=== PATIENT | female | born 1950 | race Caucasian/White ===

== ENCOUNTER 2016-08-13 14:00 | Outpatient (RCR) | payer MEDICARE, OTHER ==
[~2016-08-13 14:00] MED LIST: ASPIRIN E.C. 8181 MG PO; AZOR 10 MG-20 M1 TAB PO; BACTRIM 400 MG-1 TAB PO; CELEBREX50 MG PO
== END 2016-09-21 | disposition home or self-care (01) ==
LOC: WSPT
DX: Z47.89 Encounter for other orthopedic aftercare (principal); M25.861 Other specified joint disorders, right knee
CPT/HCPCS: G8978-GP; G8979-GP; G8980-GP; G8982-GP

== ENCOUNTER 2016-09-23 14:16 | Outpatient (RCR) | payer OTHER | END 2016-12-22 | LOC: WSOH | DX: Z77.21 Contact with and (suspected) exposure to potentially hazardous body fluids (principal); S61.032A Puncture wound without foreign body of left thumb without damage to nail, initial encounter; W26.8XXA Contact with other sharp object(s), not elsewhere classified, initial encounter; Y99.0 Civilian activity done for income or pay ==

== ENCOUNTER → 2016-10-08 | Outpatient (CLI) | payer MEDICARE, OTHER | LOC: MC.RAD 10-06 14:20 | DX: Z12.31 Encounter for screening mammogram for malignant neoplasm of breast (principal) ==

== ENCOUNTER → 2017-05-03 | Outpatient (CLI) | payer MEDICARE, OTHER ==
[~2017-05-03] VITALS: Ht 165.1 cm; Wt 65.3 kg
[~2017-05-03] MED LIST changes: +AMBIEN 5MG TABLE5 MG PO; +AZOR 10 MG-40 M1 TAB PO; +CALCIUM 600-D 61 TAB PO; +COMBIRESP IH; +FYAVOLV 1 MG-51 EACH PO; +MOBIC15 MG PO; +MULTI VITAMINS1 TAB PO; +PULMICORT180 MCG/Ac IH; +SINGULAIR 110 MG/TAB PO; +VITAMIN C500 MG PO; +XANAX 0.5MG0.5 MG PO; +ZOLOFT 100MG100 MG PO; +ZYRTEC 10MG10 MG PO
[2017-05-03 14:45] VITALS: BP 130/67; PULSE 71; TEMP 97.7
== END ==
LOC: EUO 13:00
DX: J82 Pulmonary eosinophilia, not elsewhere classified (principal); Z79.899 Other long term (current) drug therapy
CPT/HCPCS: J2182

== ENCOUNTER 2017-07-06 10:01 | Outpatient (CLI) | payer MEDICARE, OTHER ==
[~2017-07-06] VITALS: Ht 165.1 cm; Wt 64.5 kg
[2017-07-06 11:06] VITALS: BP 132/58; PULSE 67; TEMP 98
== END 2017-07-09 09:11 | disposition home or self-care (01) ==
LOC: EUO 10:01
DX: J82 Pulmonary eosinophilia, not elsewhere classified (principal)
CPT/HCPCS: J2182

== ENCOUNTER 2017-08-05 12:45 | Outpatient (CLI) | payer MEDICARE, OTHER ==
[~2017-08-05] VITALS: Ht 165.1 cm; Wt 64.4 kg
[2017-08-05 13:11] VITALS: BP 115/60; PULSE 83; TEMP 98
== END 2017-08-05 16:00 | disposition home or self-care (01) ==
LOC: EUO 12:45
DX: J82 Pulmonary eosinophilia, not elsewhere classified (principal)
CPT/HCPCS: J2182

== ENCOUNTER 2017-09-02 12:51 | Outpatient (CLI) | payer MEDICARE, OTHER ==
[2017-09-02 13:05] VITALS: BP 112/56; PULSE 92; TEMP 97.6
== END 2017-09-02 13:41 | disposition home or self-care (01) ==
LOC: EUO 12:51
DX: J82 Pulmonary eosinophilia, not elsewhere classified (principal); Z79.899 Other long term (current) drug therapy
CPT/HCPCS: J2182

== ENCOUNTER 2017-10-05 10:48 | Outpatient (CLI) | payer MEDICARE, OTHER ==
[~2017-10-05] VITALS: Ht 165.1 cm; Wt 63.2 kg
[2017-10-05 11:00] VITALS: BP 128/66; PULSE 71; TEMP 98.1
== END 2017-10-05 11:45 | disposition home or self-care (01) ==
LOC: EUO 10:48
DX: J82 Pulmonary eosinophilia, not elsewhere classified (principal); Z79.899 Other long term (current) drug therapy
CPT/HCPCS: J2182

== ENCOUNTER 2017-11-01 10:41 | Outpatient (CLI) | payer MEDICARE, OTHER ==
[~2017-11-01] VITALS: Ht 165.1 cm; Wt 63.9 kg
[2017-11-01 10:56] VITALS: BP 133/66; PULSE 68; TEMP 97.9
== END 2017-11-01 13:56 | disposition home or self-care (01) ==
LOC: EUO 10:41
DX: J82 Pulmonary eosinophilia, not elsewhere classified (principal); Z79.899 Other long term (current) drug therapy
CPT/HCPCS: J2182

== ENCOUNTER 2017-11-29 10:31 | Outpatient (CLI) | payer MEDICARE, OTHER ==
[~2017-11-29] VITALS: Ht 165.1 cm; Wt 61.5 kg
[2017-11-29 10:50] VITALS: BP 114/56; PULSE 69; TEMP 98.6
== END 2017-11-29 14:00 | disposition home or self-care (01) ==
LOC: EUO 10:31
DX: J82 Pulmonary eosinophilia, not elsewhere classified (principal)
CPT/HCPCS: J2182

== ENCOUNTER → 2017-12-20 | Outpatient (CLI) | payer MEDICARE, OTHER | LOC: MC.RAD 12-06 11:20 | DX: Z12.31 Encounter for screening mammogram for malignant neoplasm of breast (principal); N64.89 Other specified disorders of breast ==

== ENCOUNTER 2017-12-27 10:44 | Outpatient (CLI) | payer MEDICARE, OTHER ==
[~2017-12-27] VITALS: Ht 165.1 cm; Wt 61.9 kg
[2017-12-27 11:10] VITALS: BP 112/61; PULSE 65; TEMP 98.3
== END 2017-12-27 12:03 | disposition home or self-care (01) ==
LOC: EUO 10:44
DX: J82 Pulmonary eosinophilia, not elsewhere classified (principal)
CPT/HCPCS: J2182

== ENCOUNTER → 2017-12-28 | Outpatient (CLI) | payer MEDICARE, OTHER | LOC: MC.RAD 09:53 | DX: R92.2 Inconclusive mammogram (principal); N64.89 Other specified disorders of breast; J82 Pulmonary eosinophilia, not elsewhere classified ==

== ENCOUNTER 2018-01-28 15:55 | Emergency (ER) | payer MEDICARE, OTHER ==
[~2018-01-28] VITALS: Ht 165.1 cm; Wt 62.3 kg
[2018-01-28 15:59] VITALS: TEMP 98.2
[2018-01-28] MEDS ORDERED: PREDNISONE20 MG PO (17:16)
[2018-01-28] MEDS ORDERED: ZITHROMAX Z PA250 MG PO (17:16)
[2018-01-28 17:28] VITALS: BP 141/87; PULSE 82
== END 2018-01-28 17:28 | disposition home or self-care (01) ==
LOC: COL.ER 15:55
DX: J45.901 Unspecified asthma with (acute) exacerbation (principal); Z79.1 Long term (current) use of non-steroidal anti-inflammatories (NSAID)
CPT/HCPCS: J7512

== ENCOUNTER 2018-02-02 12:40 | Outpatient (CLI) | payer MEDICARE, OTHER ==
[~2018-02-02] VITALS: Ht 165.1 cm; Wt 61.0 kg
[~2018-02-02 12:40] MED LIST changes: +PREDNISONE20 MG PO; +ZITHROMAX Z PA250 MG PO
[2018-02-02 13:54] VITALS: BP 142/74; PULSE 77; TEMP 98.7
== END 2018-02-02 14:00 | disposition home or self-care (01) ==
LOC: EUO 12:40
DX: J82 Pulmonary eosinophilia, not elsewhere classified (principal)
CPT/HCPCS: J2182

== ENCOUNTER 2018-03-03 14:29 | Outpatient (CLI) | payer MEDICARE, OTHER ==
[~2018-03-03] VITALS: Ht 165.1 cm; Wt 62.0 kg
[2018-03-03] MEDS ORDERED: FLONASE NASAL S16 GM NS (15:35)
[2018-03-03] MEDS ORDERED: PRIL40 PO (15:35)
[2018-03-03 15:42] VITALS: BP 128/60; PULSE 73; TEMP 98.4
== END 2018-03-03 17:12 | disposition home or self-care (01) ==
LOC: EUO 14:29
DX: J82 Pulmonary eosinophilia, not elsewhere classified (principal); Z79.899 Other long term (current) drug therapy
CPT/HCPCS: J2182

== ENCOUNTER 2018-03-31 12:47 | Outpatient (CLI) | payer MEDICARE, OTHER ==
[~2018-03-31] VITALS: Ht 165.1 cm; Wt 69.1 kg
[~2018-03-31 12:47] MED LIST changes: +FLONASE NASAL S16 GM NS; +PRIL40 PO
[2018-03-31 13:30] VITALS: BP 97/45; PULSE 78
== END 2018-03-31 16:00 | disposition home or self-care (01) ==
LOC: EUO 12:47
DX: J82 Pulmonary eosinophilia, not elsewhere classified (principal)
CPT/HCPCS: J2182

== ENCOUNTER 2018-05-01 13:00 | Outpatient (CLI) | payer MEDICARE, OTHER ==
[~2018-05-01] VITALS: Ht 165.1 cm; Wt 62.3 kg
[2018-05-01 13:14] VITALS: BP 128/56; PULSE 78; TEMP 97.3
== END 2018-05-01 13:49 | disposition home or self-care (01) ==
LOC: EUO 13:00
DX: J82 Pulmonary eosinophilia, not elsewhere classified (principal)
CPT/HCPCS: J2182

== ENCOUNTER 2018-05-30 13:58 | Outpatient (CLI) | payer MEDICARE, OTHER ==
[~2018-05-30] VITALS: Ht 165.1 cm; Wt 81.5 kg
[2018-05-30 14:53] VITALS: BP 134/63; PULSE 72; TEMP 98.1
== END 2018-05-30 14:56 | disposition home or self-care (01) ==
LOC: EUO 13:58
DX: J82 Pulmonary eosinophilia, not elsewhere classified (principal); Z79.899 Other long term (current) drug therapy
CPT/HCPCS: J2182

== ENCOUNTER 2018-06-27 09:49 | Outpatient (CLI) | payer MEDICARE, OTHER ==
[~2018-06-27] VITALS: Ht 165.1 cm; Wt 62.3 kg
[2018-06-27 10:27] VITALS: BP 120/53; PULSE 67; TEMP 97.5
== END 2018-06-27 10:28 | disposition home or self-care (01) ==
LOC: EUO 09:49
DX: J82 Pulmonary eosinophilia, not elsewhere classified (principal); Z79.899 Other long term (current) drug therapy
CPT/HCPCS: J2182

== ENCOUNTER 2018-07-28 12:54 | Outpatient (CLI) | payer MEDICARE, OTHER ==
[~2018-07-28] VITALS: Ht 165.1 cm; Wt 62.0 kg
[2018-07-28 13:36] VITALS: BP 99/47; PULSE 79; TEMP 97.5
--- NOTE | 2018-07-28 13:46 | NUR ---
Pt paras William well. Pt discharged per ambulation.
== END 2018-07-28 13:47 | disposition home or self-care (01) ==
LOC: EUO 12:54
DX: J82 Pulmonary eosinophilia, not elsewhere classified (principal); Z79.899 Other long term (current) drug therapy
CPT/HCPCS: J2182

== ENCOUNTER 2018-08-28 12:43 | Outpatient (CLI) | payer MEDICARE, OTHER ==
[~2018-08-28] VITALS: Ht 165.1 cm; Wt 63.7 kg
[2018-08-28 13:41] VITALS: BP 110/47; PULSE 81; TEMP 97.3
== END 2018-08-28 13:41 | disposition home or self-care (01) ==
LOC: EUO 12:43
DX: J82 Pulmonary eosinophilia, not elsewhere classified (principal); Z79.899 Other long term (current) drug therapy
CPT/HCPCS: J2182

== ENCOUNTER 2018-09-25 10:14 | Outpatient (CLI) | payer MEDICARE, OTHER ==
[~2018-09-25] VITALS: Ht 165.1 cm; Wt 65.0 kg
[2018-09-25 10:33] VITALS: BP 121/61; PULSE 72; TEMP 98.3
== END 2018-09-25 11:39 | disposition home or self-care (01) ==
LOC: EUO 10:14
DX: J82 Pulmonary eosinophilia, not elsewhere classified (principal); Z79.899 Other long term (current) drug therapy
CPT/HCPCS: J2182

== ENCOUNTER 2018-10-23 12:44 | Outpatient (CLI) | payer MEDICARE, OTHER ==
[~2018-10-23] VITALS: Ht 165.1 cm; Wt 62.7 kg
[2018-10-23 12:57] VITALS: BP 101/57; PULSE 86; TEMP 97.7
== END 2018-10-23 13:30 | disposition home or self-care (01) ==
LOC: EUO 12:44
DX: J82 Pulmonary eosinophilia, not elsewhere classified (principal); Z79.899 Other long term (current) drug therapy
CPT/HCPCS: J2182

== ENCOUNTER 2018-11-20 13:59 | Outpatient (CLI) | payer MEDICARE, OTHER ==
[~2018-11-20] VITALS: Ht 165.1 cm; Wt 63.0 kg
[2018-11-20 14:15] VITALS: BP 117/59; PULSE 73; TEMP 98.4
--- NOTE | 2018-11-20 14:32 | NUR ---
Pt paras William well. Pt discharged per ambulation.
== END 2018-11-20 14:33 | disposition home or self-care (01) ==
LOC: EUO 13:59
DX: J82 Pulmonary eosinophilia, not elsewhere classified (principal); Z79.899 Other long term (current) drug therapy
CPT/HCPCS: J2182

== ENCOUNTER → 2018-12-21 | Outpatient (CLI) | payer MEDICARE, OTHER | LOC: MC.RAD 16:36 | DX: Z12.31 Encounter for screening mammogram for malignant neoplasm of breast (principal) | CPT/HCPCS: G0279 ==

== ENCOUNTER 2018-12-25 14:49 | Outpatient (CLI) | payer MEDICARE, OTHER ==
[~2018-12-25] VITALS: Ht 165.1 cm; Wt 63.1 kg
[2018-12-25 15:16] VITALS: BP 111/52; PULSE 65; TEMP 98.4
== END 2018-12-25 17:00 | disposition home or self-care (01) ==
LOC: EUO 14:49
DX: J82 Pulmonary eosinophilia, not elsewhere classified (principal); Z79.899 Other long term (current) drug therapy
CPT/HCPCS: J2182

== ENCOUNTER 2019-01-22 14:52 | Outpatient (CLI) | payer MEDICARE, OTHER ==
[~2019-01-22] VITALS: Ht 165.1 cm; Wt 61.5 kg
[2019-01-22 15:17] VITALS: BP 119/58; PULSE 69; TEMP 98.1
== END 2019-01-22 15:57 | disposition home or self-care (01) ==
LOC: EUO 14:52
DX: J82 Pulmonary eosinophilia, not elsewhere classified (principal); Z79.899 Other long term (current) drug therapy
CPT/HCPCS: J2182

== ENCOUNTER 2019-02-19 13:59 | Outpatient (CLI) | payer MEDICARE, OTHER ==
[~2019-02-19] VITALS: Ht 165.1 cm; Wt 61.8 kg
[2019-02-19 14:30] VITALS: BP 129/63; PULSE 72; TEMP 98.4
== END 2019-02-19 15:23 | disposition home or self-care (01) ==
LOC: EUO 13:59
DX: J82 Pulmonary eosinophilia, not elsewhere classified (principal); Z79.899 Other long term (current) drug therapy
CPT/HCPCS: J2182

== ENCOUNTER 2019-03-20 13:14 | Outpatient (CLI) | payer MEDICARE, OTHER ==
[~2019-03-20] VITALS: Ht 165.1 cm; Wt 61.0 kg
[2019-03-20 13:28] VITALS: BP 125/62; PULSE 80; TEMP 97.4
--- NOTE | 2019-03-20 13:44 | NUR ---
Pt paras ibrahim. Pt discharged per ambulation. Order will prior to next appt. Dr. Ferrell's office notified of new order needed prior to 04/17/19 appt.
[2019-03-20] MEDS ORDERED: NUCALA100 MG/1 M SQ (15:41)
== END 2019-03-20 13:46 | disposition home or self-care (01) ==
LOC: EUO 13:14
DX: J82 Pulmonary eosinophilia, not elsewhere classified (principal); Z79.899 Other long term (current) drug therapy
CPT/HCPCS: J2182

== ENCOUNTER 2019-04-18 15:06 | Outpatient (CLI) | payer MEDICARE, OTHER ==
[~2019-04-18] VITALS: Ht 165.1 cm; Wt 60.4 kg
[~2019-04-18 15:06] MED LIST changes: +NUCALA100 MG/1 M SQ
[2019-04-18 15:16] VITALS: BP 99/60; PULSE 93; TEMP 98.1
--- NOTE | 2019-04-18 16:36 | NUR ---
Pt paras William well. Pt discharged per ambulation.
== END 2019-04-18 16:37 | disposition home or self-care (01) ==
LOC: EUO 15:06
DX: Z79.899 Other long term (current) drug therapy (principal)
CPT/HCPCS: J2182

== ENCOUNTER 2019-05-16 16:02 | Outpatient (CLI) | payer MEDICARE, OTHER ==
[~2019-05-16] VITALS: Ht 165.1 cm; Wt 61.6 kg
[2019-05-16 16:10] VITALS: BP 116/57; PULSE 73; TEMP 98.1
== END 2019-05-16 16:36 | disposition home or self-care (01) ==
LOC: EUO 16:02
DX: Z79.899 Other long term (current) drug therapy (principal)
CPT/HCPCS: J2182

== ENCOUNTER 2019-06-13 15:40 | Outpatient (CLI) | payer MEDICARE, OTHER ==
[~2019-06-13] VITALS: Ht 165.1 cm; Wt 60.0 kg
[2019-06-13 15:50] VITALS: BP 114/59; PULSE 70; TEMP 98
[2019-06-13] MEDS ORDERED: LUNESTA2 MG PO (15:50)
--- NOTE | 2019-06-13 16:30 | NUR ---
Pt paras William well. Pt discharged per ambulation.
== END 2019-06-13 16:34 | disposition home or self-care (01) ==
LOC: EUO 15:40
DX: Z79.899 Other long term (current) drug therapy (principal)
CPT/HCPCS: J2182

== ENCOUNTER 2019-07-11 14:28 | Outpatient (CLI) | payer MEDICARE, OTHER ==
[~2019-07-11] VITALS: Ht 165.1 cm; Wt 60.4 kg
[~2019-07-11 14:28] MED LIST changes: +LUNESTA2 MG PO
[2019-07-11 15:03] VITALS: BP 111/56; PULSE 71; TEMP 98.7
== END 2019-07-11 15:21 | disposition home or self-care (01) ==
LOC: EUO 14:28
DX: Z79.899 Other long term (current) drug therapy (principal)
CPT/HCPCS: J2182

== ENCOUNTER 2019-08-08 14:20 | Outpatient (CLI) | payer MEDICARE, OTHER ==
[~2019-08-08] VITALS: Ht 165.1 cm; Wt 61.5 kg
[2019-08-08 14:41] VITALS: BP 120/69; PULSE 96; TEMP 98.1
== END 2019-08-08 15:35 | disposition home or self-care (01) ==
LOC: EUO 14:20
DX: Z79.899 Other long term (current) drug therapy (principal)
CPT/HCPCS: J2182

== ENCOUNTER 2019-09-05 14:02 | Outpatient (CLI) | payer MEDICARE, OTHER ==
[~2019-09-05] VITALS: Ht 165.1 cm; Wt 62.0 kg
[2019-09-05 14:20] VITALS: BP 112/61; PULSE 80; TEMP 98.1
== END 2019-09-05 15:00 | disposition home or self-care (01) ==
LOC: EUO 14:02
DX: Z79.899 Other long term (current) drug therapy (principal)
CPT/HCPCS: J2182

== ENCOUNTER 2019-10-03 13:56 | Outpatient (CLI) | payer MEDICARE, OTHER ==
[~2019-10-03] VITALS: Ht 165.1 cm; Wt 60.0 kg
[2019-10-03 14:30] VITALS: BP 124/55; PULSE 69; TEMP 98.2
== END 2019-10-03 15:00 | disposition home or self-care (01) ==
LOC: EUO 13:56
DX: Z79.899 Other long term (current) drug therapy (principal)
CPT/HCPCS: J2182

== ENCOUNTER 2019-11-28 13:58 | Outpatient (CLI) | payer MEDICARE, OTHER ==
[~2019-11-28] VITALS: Ht 165.1 cm; Wt 62.2 kg
[2019-11-28 14:16] VITALS: BP 122/66; PULSE 80; TEMP 97.8
== END 2019-11-28 16:19 | disposition home or self-care (01) ==
LOC: EUO 13:58
DX: Z79.899 Other long term (current) drug therapy (principal)
CPT/HCPCS: J2182

== ENCOUNTER 2019-12-25 13:56 | Outpatient (CLI) | payer MEDICARE, OTHER ==
[~2019-12-25] VITALS: Ht 165.1 cm; Wt 61.9 kg
[2019-12-25] MEDS ORDERED: ASPIRIN E.C. 8181 MG PO (14:26)
[2019-12-25 14:29] VITALS: BP 118/74; PULSE 77; TEMP 99.4
== END 2019-12-25 15:44 | disposition home or self-care (01) ==
LOC: EUO 13:56
DX: Z79.899 Other long term (current) drug therapy (principal)
CPT/HCPCS: J2182

== ENCOUNTER 2020-01-22 13:40 | Outpatient (CLI) | payer MEDICARE, OTHER ==
[~2020-01-22] VITALS: Ht 165.1 cm; Wt 60.9 kg
[2020-01-22 14:18] VITALS: BP 127/53; PULSE 71; TEMP 99
== END 2020-01-22 14:18 | disposition home or self-care (01) ==
LOC: EUO 13:40
DX: Z79.899 Other long term (current) drug therapy (principal)
CPT/HCPCS: J2182

== ENCOUNTER 2020-02-19 13:56 | Outpatient (CLI) | payer MEDICARE, OTHER ==
[~2020-02-19] VITALS: Ht 165.1 cm; Wt 60.4 kg
[2020-02-19 14:46] VITALS: BP 106/65; PULSE 74; TEMP 98.6
== END 2020-02-19 14:52 | disposition home or self-care (01) ==
LOC: EUO 13:56
DX: Z79.899 Other long term (current) drug therapy (principal)
CPT/HCPCS: J2182

== ENCOUNTER → 2020-03-18 | Outpatient (CLI) | payer MEDICARE, OTHER ==
[~2020-03-18] VITALS: Ht 165.1 cm; Wt 60.2 kg
[2020-03-18 14:23] VITALS: BP 122/75; PULSE 71; TEMP 97.9
== END ==
LOC: EUO 13:56
DX: Z79.899 Other long term (current) drug therapy (principal)
CPT/HCPCS: J2182

== ENCOUNTER 2020-04-15 15:49 | Outpatient (CLI) | payer MEDICARE, OTHER ==
[~2020-04-15] VITALS: Ht 165.1 cm; Wt 61.2 kg
[2020-04-15 16:06] VITALS: BP 122/60; PULSE 79; TEMP 97.6
== END 2020-04-15 17:49 | disposition home or self-care (01) ==
LOC: EUO 15:49
DX: Z79.899 Other long term (current) drug therapy (principal)
CPT/HCPCS: J2182

== ENCOUNTER 2020-05-14 12:50 | Outpatient (CLI) | payer MEDICARE, OTHER ==
[~2020-05-14] VITALS: Ht 165.1 cm; Wt 62.0 kg
[2020-05-14 13:45] VITALS: BP 121/70; PULSE 73; TEMP 97.7
== END 2020-05-14 13:55 | disposition home or self-care (01) ==
LOC: EUO 12:50
DX: D72.10 Eosinophilia, unspecified (principal)
CPT/HCPCS: J2182

== ENCOUNTER → 2020-06-11 | Outpatient (CLI) | payer MEDICARE, OTHER ==
[~2020-06-11] VITALS: Ht 165.1 cm; Wt 61.6 kg
[2020-06-11 10:52] VITALS: BP 111/60; BP 123/69; PULSE 70; PULSE 79; TEMP 98.5; TEMP 99.1
== END ==
LOC: EUO 09:55
DX: Z79.899 Other long term (current) drug therapy (principal)
CPT/HCPCS: J2182

== ENCOUNTER 2020-07-07 14:00 | Outpatient (RCR) | payer MEDICARE, OTHER ==
[2020-07-07] MEDS ORDERED: PHARMASSURE ZIN50 MG PO (14:46)
== END 2020-07-28 | disposition home or self-care (01) ==
LOC: WSPT
DX: M89.49 Other hypertrophic osteoarthropathy, multiple sites (principal)

== ENCOUNTER 2020-07-07 14:05 | Outpatient (CLI) | payer MEDICARE, OTHER ==
[~2020-07-07] VITALS: Ht 165.1 cm; Wt 62.0 kg
[2020-07-07] MEDS ORDERED: PHARMASSURE ZIN50 MG PO (14:46)
[2020-07-07 14:47] VITALS: BP 121/72; PULSE 78; TEMP 98.5
== END 2020-07-07 15:03 | disposition home or self-care (01) ==
LOC: EUO 14:05
DX: Z79.899 Other long term (current) drug therapy (principal)
CPT/HCPCS: J2182

== ENCOUNTER 2020-08-05 14:51 | Emergency (ER) | payer MEDICARE, OTHER ==
[~2020-08-05] VITALS: Ht 165.1 cm; Wt 62.3 kg
[~2020-08-05 14:51] MED LIST changes: +PHARMASSURE ZIN50 MG PO
[2020-08-05 14:55] VITALS: TEMP 98.4
[2020-08-05] MEDS ORDERED: PERCOCET 325 MG1 TA2 PO (18:15)
[2020-08-05 18:47] VITALS: BP 122/70; PULSE 68
== END 2020-08-05 18:47 | disposition home or self-care (01) ==
LOC: COL.ER 14:51
DX: S53.104A Unspecified dislocation of right ulnohumeral joint, initial encounter (principal); Z88.0 Allergy status to penicillin; Z88.2 Allergy status to sulfonamides; Z88.1 Allergy status to other antibiotic agents; Z87.891 Personal history of nicotine dependence; Z79.82 Long term (current) use of aspirin; W19.XXXA Unspecified fall, initial encounter
CPT/HCPCS: J2405; J2704; J3010; J7030

== ENCOUNTER 2020-08-11 15:38 | Outpatient (CLI) | payer MEDICARE, OTHER ==
[~2020-08-11] VITALS: Ht 165.1 cm; Wt 62.3 kg
[~2020-08-11 15:38] MED LIST changes: +PERCOCET 325 MG1 TA2 PO
[2020-08-11 16:03] VITALS: BP 130/79; PULSE 72; TEMP 98.3
== END 2020-08-12 13:58 | disposition home or self-care (01) ==
LOC: EUO 15:38
DX: M81.0 Age-related osteoporosis without current pathological fracture (principal)
CPT/HCPCS: J2182

== ENCOUNTER 2020-09-08 13:37 | Outpatient (CLI) | payer MEDICARE, OTHER ==
[~2020-09-08] VITALS: Ht 165.1 cm; Wt 68.2 kg
[2020-09-08 14:27] VITALS: BP 102/63; PULSE 75; TEMP 98.7
== END 2020-09-08 14:30 | disposition home or self-care (01) ==
LOC: EUO 13:37
DX: Z79.899 Other long term (current) drug therapy (principal)
CPT/HCPCS: J2182

== ENCOUNTER 2020-10-06 09:41 | Outpatient (CLI) | payer MEDICARE, OTHER ==
[~2020-10-06] VITALS: Ht 165.1 cm; Wt 62.6 kg
[~2020-10-06 09:41] MED LIST changes: +DUO-KAPS1 CAP PO; -MULTI VITAMINS1 TAB PO
[2020-10-06 10:04] VITALS: BP 110/71; PULSE 76; TEMP 98.5
== END 2020-10-06 10:20 | disposition home or self-care (01) ==
LOC: EUO
DX: Z79.899 Other long term (current) drug therapy (principal)
CPT/HCPCS: J2182

== ENCOUNTER 2020-10-06 14:00 | Outpatient (RCR) | payer MEDICARE, OTHER | END 2020-11-16 | disposition still patient (30) | LOC: WSOT | DX: M25.521 Pain in right elbow (principal) ==

== ENCOUNTER 2020-10-28 13:48 | Outpatient (CLI) | payer MEDICARE, OTHER ==
[~2020-10-28] VITALS: Ht 165.1 cm; Wt 62.4 kg
[2020-10-28 14:11] VITALS: BP 111/68; PULSE 84; TEMP 97.4
== END 2020-10-28 17:11 | disposition home or self-care (01) ==
LOC: EUO 13:48
DX: Z79.899 Other long term (current) drug therapy (principal)
CPT/HCPCS: J2182

== ENCOUNTER → 2020-11-25 10:01 | Outpatient (CLI) | payer MEDICARE, OTHER ==
[~2020-11-25] VITALS: Ht 165.1 cm; Wt 61.1 kg
[~2020-11-25 10:01] MED LIST changes: +CELEBREX 1100 MG/CAP PO; +LIPITOR 10MG10 MG PO
[2020-11-25 10:28] VITALS: BP 146/69; PULSE 70; TEMP 98.8
== END ==
LOC: EUO 10:01
DX: Z79.899 Other long term (current) drug therapy (principal)
CPT/HCPCS: J0517; J2182

== ENCOUNTER → 2020-11-27 | Outpatient (CLI) | payer MEDICARE, OTHER | LOC: MC.RAD 10:19 | DX: Z12.31 Encounter for screening mammogram for malignant neoplasm of breast (principal) ==

== ENCOUNTER 2020-12-25 12:41 | Outpatient (CLI) | payer MEDICARE, OTHER ==
[~2020-12-25] VITALS: Ht 165.1 cm; Wt 60.8 kg
[~2020-12-25 12:41] MED LIST changes: -CELEBREX 1100 MG/CAP PO; -LIPITOR 10MG10 MG PO
[2020-12-25 13:26] VITALS: BP 113/72; PULSE 74; TEMP 97.7
== END 2020-12-30 15:57 | disposition home or self-care (01) ==
LOC: EUO 12:41
DX: Z79.899 Other long term (current) drug therapy (principal)
CPT/HCPCS: J2182

== ENCOUNTER → 2021-01-07 | Outpatient (CLI) | payer MEDICARE, OTHER ==
[~2021-01-07] MED LIST changes: +CELEBREX 1100 MG/CAP PO; +LIPITOR 10MG10 MG PO
== END ==
LOC: MHCPAIN 10:47
DX: M54.2 Cervicalgia (principal); R51.9 Headache, unspecified; M47.812 Spondylosis without myelopathy or radiculopathy, cervical region; G89.29 Other chronic pain
CPT/HCPCS: G0463

== ENCOUNTER 2021-01-22 15:21 | Outpatient (CLI) | payer MEDICARE, OTHER ==
[~2021-01-22] VITALS: Ht 165.1 cm; Wt 60.8 kg
[~2021-01-22 15:21] MED LIST changes: -CELEBREX 1100 MG/CAP PO; -LIPITOR 10MG10 MG PO
[2021-01-22 16:15] VITALS: BP 115/66; PULSE 71; TEMP 98
== END 2021-01-22 16:00 | disposition home or self-care (01) ==
LOC: EUO 15:21
DX: Z79.899 Other long term (current) drug therapy (principal)
CPT/HCPCS: J2182

== ENCOUNTER 2021-02-23 13:28 | Outpatient (CLI) | payer MEDICARE, OTHER ==
[~2021-02-23] VITALS: Ht 165.1 cm; Wt 60.0 kg
[2021-02-23 13:55] VITALS: BP 106/65; PULSE 70; TEMP 97.5
== END 2021-02-23 14:26 | disposition home or self-care (01) ==
LOC: EUO 13:28
DX: Z79.899 Other long term (current) drug therapy (principal)
CPT/HCPCS: J2182

== ENCOUNTER 2021-03-23 13:24 | Outpatient (CLI) | payer MEDICARE, OTHER ==
[~2021-03-23] VITALS: Ht 165.1 cm; Wt 64.5 kg
[2021-03-23 13:37] VITALS: BP 113/62; PULSE 73; TEMP 97.4
== END 2021-03-23 16:05 | disposition home or self-care (01) ==
LOC: EUO 13:24
DX: Z79.899 Other long term (current) drug therapy (principal)
CPT/HCPCS: J2182

== ENCOUNTER 2021-04-20 13:10 | Outpatient (CLI) | payer MEDICARE, OTHER ==
[~2021-04-20] VITALS: Ht 165.1 cm; Wt 59.6 kg
[2021-04-20 13:45] VITALS: BP 119/63; PULSE 84; TEMP 98.2
[2021-04-20] MEDS ORDERED: CELEBREX 1100 MG/CAP PO (13:48)
== END 2021-04-20 14:47 | disposition home or self-care (01) ==
LOC: EUO 13:10
DX: Z79.899 Other long term (current) drug therapy (principal)
CPT/HCPCS: J2182

== ENCOUNTER → 2021-04-24 | Outpatient (CLI) | payer MEDICARE, OTHER ==
[~2021-04-24] MED LIST changes: +CELEBREX 1100 MG/CAP PO; +LIPITOR 10MG10 MG PO
== END ==
LOC: MC.RAD 06:55
DX: N63.11 Unspecified lump in the right breast, upper outer quadrant (principal)

== ENCOUNTER 2021-05-18 14:42 | Outpatient (CLI) | payer MEDICARE, OTHER ==
[~2021-05-18] VITALS: Ht 165.1 cm; Wt 59.6 kg
[~2021-05-18 14:42] MED LIST changes: -LIPITOR 10MG10 MG PO
[2021-05-18] MEDS ORDERED: LIPITOR 10MG10 MG PO (14:57)
[2021-05-18 14:58] VITALS: BP 114/64; PULSE 81; TEMP 97.6
== END 2021-05-18 15:43 ==
LOC: EUO 14:42
DX: Z79.899 Other long term (current) drug therapy (principal)
CPT/HCPCS: J2182

== ENCOUNTER 2021-06-15 13:18 | Outpatient (CLI) | payer MEDICARE, OTHER ==
[~2021-06-15] VITALS: Ht 165.1 cm; Wt 56.4 kg
[~2021-06-15 13:18] MED LIST changes: +LIPITOR 10MG10 MG PO
[2021-06-15 13:36] VITALS: BP 109/74; PULSE 73; TEMP 97.8
== END 2021-06-15 14:06 | disposition home or self-care (01) ==
LOC: EUO 13:18
DX: Z79.899 Other long term (current) drug therapy (principal)
CPT/HCPCS: J2182

== ENCOUNTER 2021-07-13 12:45 | Outpatient (CLI) | payer MEDICARE, OTHER ==
[~2021-07-13] VITALS: Ht 165.1 cm; Wt 60.2 kg
[2021-07-13 13:09] VITALS: BP 128/64; PULSE 72; TEMP 97.5
== END 2021-07-13 17:13 | disposition home or self-care (01) ==
LOC: EUO 12:45
DX: Z79.899 Other long term (current) drug therapy (principal)
CPT/HCPCS: J2182

== ENCOUNTER 2021-08-10 14:03 | Outpatient (CLI) | payer MEDICARE, OTHER ==
[~2021-08-10] VITALS: Ht 165.1 cm; Wt 60.2 kg
[2021-08-10 14:30] VITALS: BP 138/62; PULSE 62; TEMP 98
== END 2021-08-10 15:00 | disposition home or self-care (01) ==
LOC: EUO 14:03
DX: Z79.899 Other long term (current) drug therapy (principal)
CPT/HCPCS: J2182

== ENCOUNTER 2021-09-07 12:37 | Outpatient (CLI) | payer MEDICARE, OTHER ==
[~2021-09-07] VITALS: Ht 165.1 cm; Wt 62.0 kg
[2021-09-07 12:59] VITALS: BP 119/72; PULSE 77; TEMP 98.1
== END 2021-09-07 13:18 | disposition home or self-care (01) ==
LOC: EUO 12:37
DX: Z79.899 Other long term (current) drug therapy (principal)
CPT/HCPCS: J2182

== ENCOUNTER → 2021-10-12 | Outpatient (CLI) | payer MEDICARE, OTHER ==
[~2021-10-12] VITALS: Ht 165.1 cm; Wt 73.0 kg
[~2021-10-12] MED LIST changes: +ULTRAM 50MG TAB50 MG PO; +ZOHYDRO ER10 MG PO
[2021-10-12 13:27] VITALS: BP 114/76; PULSE 110; TEMP 97.7
== END ==
LOC: EUO 10-05 13:00
DX: Z51.81 Encounter for therapeutic drug level monitoring (principal)
CPT/HCPCS: J2182

== ENCOUNTER 2021-11-09 12:52 | Outpatient (CLI) | payer MEDICARE, OTHER ==
[~2021-11-09] VITALS: Ht 165.1 cm; Wt 60.1 kg
[2021-11-09 13:24] VITALS: BP 100/67; PULSE 98; TEMP 98.7
[2021-11-09] MEDS ORDERED: CELEBREX 200MG200 MG PO (13:24)
== END 2021-11-09 15:04 | disposition home or self-care (01) ==
LOC: EUO 12:52
DX: Z51.81 Encounter for therapeutic drug level monitoring (principal)
CPT/HCPCS: J2182

== ENCOUNTER 2021-12-07 12:42 | Outpatient (CLI) | payer MEDICARE, OTHER ==
[~2021-12-07] VITALS: Ht 165.1 cm; Wt 59.6 kg
[~2021-12-07 12:42] MED LIST changes: +CELEBREX 200MG200 MG PO
[2021-12-07 13:26] VITALS: BP 95/60; PULSE 71; TEMP 98.3
== END 2021-12-07 13:27 ==
LOC: EUO 12:42
DX: Z79.899 Other long term (current) drug therapy (principal)
CPT/HCPCS: J2182

== ENCOUNTER → 2021-12-17 | Outpatient (CLI) | payer MEDICARE, OTHER | LOC: MC.RAD 09:08 | DX: Z12.31 Encounter for screening mammogram for malignant neoplasm of breast (principal) ==

== ENCOUNTER 2022-01-04 12:45 | Outpatient (CLI) | payer MEDICARE, OTHER ==
[~2022-01-04] VITALS: Ht 165.1 cm; Wt 59.3 kg
[2022-01-04 13:15] VITALS: BP 98/60; PULSE 82; TEMP 98.7
== END 2022-01-04 13:39 ==
LOC: EUO 12:45
DX: Z51.81 Encounter for therapeutic drug level monitoring (principal)
CPT/HCPCS: J2182

== ENCOUNTER 2022-03-01 12:38 | Outpatient (CLI) | payer MEDICARE, OTHER ==
[~2022-03-01] VITALS: Ht 165.1 cm; Wt 60.1 kg
[~2022-03-01 12:38] MED LIST changes: +CREON 120000 U-1 ECC PO; +CYMBALTA 30MG30 MG PO; +MIMVEY 1 MG-0.51 TAB PO
[2022-03-01] MEDS ORDERED: CYMBALTA 30MG30 MG PO (13:20)
[2022-03-01 13:24] VITALS: BP 103/66; PULSE 72; TEMP 97.4
== END 2022-03-01 13:45 | disposition home or self-care (01) ==
LOC: EUO 12:38
DX: Z51.81 Encounter for therapeutic drug level monitoring (principal)
CPT/HCPCS: J2182

== ENCOUNTER 2022-03-30 10:42 | Outpatient (CLI) | payer MEDICARE, OTHER ==
[~2022-03-30] VITALS: Ht 165.1 cm; Wt 60.6 kg
[2022-03-30 11:23] VITALS: BP 110/68; PULSE 84; TEMP 98.4
== END 2022-03-30 11:32 ==
LOC: EUO 10:42
DX: Z51.81 Encounter for therapeutic drug level monitoring (principal)
CPT/HCPCS: J2182

== ENCOUNTER 2022-05-25 12:37 | Outpatient (CLI) | payer MEDICARE, OTHER ==
[~2022-05-25] VITALS: Ht 165.1 cm; Wt 62.2 kg
[~2022-05-25 12:37] MED LIST changes: +ACTIVELLA TABLE1 TAB PO; +FLOVENT DI100 MCG/Ac IH
[2022-05-25 13:17] VITALS: BP 128/62; PULSE 71; TEMP 97.9
== END 2022-05-25 13:26 ==
LOC: EUO 12:37
DX: Z51.81 Encounter for therapeutic drug level monitoring (principal); Z79.899 Other long term (current) drug therapy
CPT/HCPCS: J2182

== ENCOUNTER → 2022-08-24 | Outpatient (RCR) | payer MEDICARE, OTHER | END | disposition home or self-care (01) | LOC: PT.GENESIS | DX: M25.561 Pain in right knee (principal); M25.562 Pain in left knee; M54.2 Cervicalgia; G89.29 Other chronic pain ==

== ENCOUNTER 2022-08-27 10:45 | Outpatient (RCR) | payer MEDICARE, OTHER | END 2022-09-14 14:14 | disposition home or self-care (01) | LOC: PT.GENESIS 10:45 | DX: M25.561 Pain in right knee (principal); M25.562 Pain in left knee; G89.29 Other chronic pain ==

== ENCOUNTER 2022-09-02 07:39 | Outpatient (CLI) | payer MEDICARE, OTHER ==
[~2022-09-02] VITALS: Ht 165.1 cm; Wt 64.5 kg
[2022-09-02 08:02] VITALS: BP 134/77; PULSE 78; TEMP 98.4
--- NOTE | 2022-09-02 08:20 | NUR ---
Pt tolerated injections without issue. She exits dept with steady gait.
== END 2022-09-02 08:20 | disposition home or self-care (01) ==
LOC: EUO 07:39
DX: Z79.899 Other long term (current) drug therapy (principal)
CPT/HCPCS: J2182

== ENCOUNTER 2023-03-25 10:48 | Outpatient (CLI) | payer MEDICARE, OTHER ==
[~2023-03-25] VITALS: Ht 165.1 cm; Wt 63.9 kg
[2023-03-25 11:23] VITALS: BP 112/75; PULSE 85; TEMP 98.4
== END 2023-03-25 11:30 | disposition home or self-care (01) ==
LOC: EUO 10:48
DX: Z51.81 Encounter for therapeutic drug level monitoring (principal)
CPT/HCPCS: J2182

== ENCOUNTER 2023-07-19 12:40 | Outpatient (CLI) | payer MEDICARE, OTHER ==
[~2023-07-19] VITALS: Ht 165.1 cm; Wt 63.5 kg
[~2023-07-19 12:40] MED LIST changes: +ADVIL200 MG PO
[2023-07-19 12:52] VITALS: BP 106/67; PULSE 95; TEMP 97.6
== END 2023-07-19 13:12 | disposition home or self-care (01) ==
LOC: EUO 12:40
DX: Z51.81 Encounter for therapeutic drug level monitoring (principal)
CPT/HCPCS: J2182

== ENCOUNTER 2023-08-23 13:45 | Outpatient (RCR) | payer MEDICARE, OTHER | END 2023-08-24 | disposition home or self-care (01) | LOC: PT.GENESIS | DX: M17.0 Bilateral primary osteoarthritis of knee (principal); Z96.652 Presence of left artificial knee joint ==

== ENCOUNTER 2023-09-14 11:01 | Outpatient (CLI) | payer MEDICARE, OTHER ==
[~2023-09-14] VITALS: Ht 165.1 cm; Wt 63.1 kg
[2023-09-14] MEDS ORDERED: Mepolizumab 100 MG VIAL SQ ONE (11:15)
[2023-09-14 11:31] VITALS: BP 107/73; PULSE 96; TEMP 98.5
[2023-09-14] MEDS ORDERED: PROAIR HFA0.09 MG/AC IH (11:36)
--- NOTE | 2023-09-14 12:02 | NUR ---
Pt tolerated medication without issue. She exits dept with steady gait. Free of complaints at discharge.
== END 2023-09-14 12:03 | disposition home or self-care (01) ==
LOC: EUO 11:01
DX: J45.909 Unspecified asthma, uncomplicated (principal)
CPT/HCPCS: J2182

== ENCOUNTER 2023-09-21 14:30 | Outpatient (RCR) | payer MEDICARE, OTHER ==
[~2023-09-21 14:30] MED LIST changes: +PROAIR HFA0.09 MG/AC IH
== END 2023-09-22 | disposition home or self-care (01) ==
LOC: PT.GENESIS
DX: Z96.652 Presence of left artificial knee joint (principal)
CPT/HCPCS: G0283-GP

== ENCOUNTER 2023-10-12 10:02 | Outpatient (CLI) | payer MEDICARE, OTHER ==
[2023-10-12] MEDS ORDERED: Mepolizumab 100 MG VIAL SQ ONE (10:15)
[2023-10-12 10:19] VITALS: BP 104/67; PULSE 100; TEMP 97.6
== END 2023-10-12 11:02 ==
LOC: EUO 10:02
DX: J45.909 Unspecified asthma, uncomplicated (principal)
CPT/HCPCS: J2182

== ENCOUNTER 2023-11-09 08:39 | Outpatient (CLI) | payer MEDICARE, OTHER ==
[~2023-11-09] VITALS: Ht 165.1 cm; Wt 61.6 kg
[2023-11-09] MEDS ORDERED: Mepolizumab 100 MG VIAL SQ ONE (09:00)
[2023-11-09 09:13] VITALS: BP 142/81; PULSE 74; TEMP 98
== END 2023-11-09 09:14 ==
LOC: EUO 08:39
DX: J45.909 Unspecified asthma, uncomplicated (principal)
CPT/HCPCS: J2182

== ENCOUNTER → 2024-03-20 | Outpatient (CLI) | payer MEDICARE | LOC: MC.RAD 07:11 | DX: Z12.31 Encounter for screening mammogram for malignant neoplasm of breast (principal) ==

== ENCOUNTER 2024-05-11 08:41 | Outpatient (CLI) | payer MEDICARE, OTHER ==
[~2024-05-11] VITALS: Ht 165.1 cm; Wt 54.7 kg
[2024-05-11] MEDS ORDERED: Mepolizumab 100 MG VIAL SQ ONE (09:00)
[2024-05-11 09:26] VITALS: BP 119/70; PULSE 77; TEMP 97.6
== END 2024-05-11 09:30 | disposition home or self-care (01) ==
LOC: EUO 08:41
DX: J45.909 Unspecified asthma, uncomplicated (principal)
CPT/HCPCS: J2182